=== PATIENT | male | born 1965 | race Two or more races ===

== ENCOUNTER 2020-02-12 09:56 | Outpatient (REF) | payer OTHER, SELFPAY | END 2020-02-12 09:57 | disposition home or self-care (01) | LOC: HO.LAB 09:56 | PROVIDERS: Visit Provider Internal Medicine | DX: Z20.828 Contact with and (suspected) exposure to other viral communicable diseases (principal) | CPT/HCPCS: 87635 ==

== ENCOUNTER 2020-08-10 09:03 | Inpatient (IN) | payer OTHER, SELFPAY ==
[2020-08-10] VITALS (8 sets, daily range): BP systolic 165–263; BP diastolic 90–170; PULSE 67–99; RESP 16–20; TEMP 36.2–37.1; O2SAT 95–98; BMI 33.4
--- NOTE | 2020-08-10 | ECG_ITS ---
Test Reason : CP Blood Pressure : / mmHG Vent. Rate : 094 BPM Atrial Rate : 094 BPM P-R Int : 160 ms QRS Dur : 086 ms QT Int : 354 ms P-R-T Axes : 065 000 225 degrees QTc Int : 442 ms Normal sinus rhythm Voltage criteria for left ventricular hypertrophy T wave abnormality, consider inferolateral ischemia Abnormal ECG No previous ECGs available Referred By: Valentina Lombardi Electronically Signed By:DONNA BROWNE MD
--- NOTE | ~2020-08-10 | XR_ITS ---
EXAMINATION: XR CHEST CLINICAL INFORMATION: Chest pain COMPARISON: None TECHNIQUE: Portable upright AP view of the chest was obtained. FINDINGS: There is no pneumothorax or pleural reaction. No airspace consolidation or definite groundglass opacity. The costophrenic sulci are clear. The heart is normal in size. The hilar and mediastinal contours and visualized bony structures are unremarkable. XR/XR chest 1V IMPRESSION: Unremarkable examination.
--- NOTE | ~2020-08-10 | CT_ITS ---
EXAMINATION: CT HEAD WITHOUT CONTRAST CLINICAL INFORMATION: Hypertension. Headache. COMPARISON: None TECHNIQUE: Contiguous axial imaging was performed from the skull base to vertex without intravenous administration of contrast. This CT examination was performed using dose optimization techniques as appropriate, variously including the following: *Automated exposure control *Adjustment of mA and/or kV according to patient size (this includes techniques or standardized protocols for targeted exams where dose is matched to indication/reason for exam; i.e. extremities or head) *Use of iterative reconstruction technique DLP: 869 mGy-cm FINDINGS: There is no evidence of acute intracranial hemorrhage or territorial infarction. No abnormal mass effect or midline shift is seen. [place] to white matter differentiation is well preserved. No extra-axial fluid collections are identified. The ventricles are normal in size. There is no abnormal attenuation within the brain parenchyma. The osseous structures and soft tissues are normal. The mastoid air cells and visualized portions of the paranasal sinuses are well aerated. CT/CT head/brain wo con IMPRESSION: Unremarkable exam.
--- NOTE | ~2020-08-10 | CT_ITS ---
EXAMINATION: CT ANGIOGRAM CHEST CLINICAL INFORMATION: Chest pain and hypertension. Rule out dissection. COMPARISON: None TECHNIQUE: Multiple axial images were obtained through the chest after the administration of 70 mL of Omnipaque 350 intravenous contrast. Extensive vascular post-processing including two-dimensional and three-dimensional reformatted images were created and reviewed on an independent workstation. This CT examination was performed using dose optimization techniques as appropriate, variously including the following: *Automated exposure control *Adjustment of mA and/or kV according to patient size (this includes techniques or standardized protocols for targeted exams where dose is matched to indication/reason for exam; i.e. extremities or head) *Use of iterative reconstruction technique DLP: 364 mGy-cm FINDINGS: The thoracic aorta is normal in caliber. No aneurysm or dissection is seen. The great vessels are normal. The heart is slightly enlarged. There is no pericardial effusion. There are no enlarged hilar or mediastinal lymph nodes. Evaluation of the lungs is limited due to respiratory motion artifact. There is a 3 mm calcified left upper lobe nodule axial image 102 series 6. The lungs are otherwise clear. There is no pleural effusion or pleural thickening. There is no pneumothorax. No chest wall mass is seen. There are small bilateral axillary lymph nodes. No enlarged axillary lymph nodes are seen. Images through the upper abdomen are unremarkable. There are degenerative changes of the spine. CT/CT angio chest IMPRESSION: Normal caliber thoracic aorta. No evidence of aneurysm or dissection. Slightly enlarged heart. Small calcified left upper lobe nodule probably representing a calcified granuloma.
[2020-08-10] MEDS: Labetalol HCL 100 MG/20 ML VIAL 10 MG IVPUSH (09:43)
[2020-08-10 09:45] LABS: MANUAL DIFF FLAG NO
[2020-08-10 09:46] LABS: Basophils Percent Auto 0.4 % (0-2); Eosinophils Absolute Auto 0.2 X10*3/uL (0.0-0.4); Eosinophils Percent Auto 3.1 % (0-4); Hematocrit 44.8 % (42-52); Hemoglobin 15.4 g/dl (14.0-18.0); Imm Gran Abs Auto 0.01 X10*3/uL (0.00-0.03); Imm Gran Pct Auto 0.1 % (0.0-0.4); Lymphocytes Absolute Auto 2.5 X10*3/uL (1.2-4.9); Lymphocytes Percent Auto 34.6 % (20-40); Mean Corpuscular HGB Conc 34.4 g/dl (31.0-36.0); Mean Corpuscular Hemoglobin 30.3 pg (27.0-33.0); Mean Corpuscular Volume 88.2 fL (80-98); Mean Platelet Volume 11.4 fL (9.4-12.4); Monocytes Absolute Auto 0.7 X10*3/uL (0.1-1.2); Monocytes Percent Auto 9.2 % (2-11); Neutrophils Absolute Auto 3.7 X10*3/uL (2.0-8.3); Neutrophils Percent Auto 52.6 % (45-73); Platelet Count 218 X10*3/uL (160-400); Red Blood Count 5.08 X10*6/uL (4.60-5.80); Red Cell Distribution Width 12.8 % (11.0-16.0); White Blood Count 7.1 X10*3/uL (4.8-10.8)
[2020-08-10 09:52] LABS: Prothrombin Time 11.6 SEC (10.8-13.0)
--- NOTE | 2020-08-10 09:53 | ED.CHESTPAIN ---
HPI - Chest Pain General Chief Complaint: Chest Pain Stated Complaint: chest pressure Time Seen by Provider: 08/10/20 09:27 Source: patient Mode of arrival: ambulatory History of Present Illness HPI narrative: 54-year-old male with past medical history of HTN noncompliant on medications presenting to the ED complaining of elevated BP at home x1 week, CP/palpitations since this morning, and posterior headache x1 week. Reports has been noncompliant with BP medications x 13 years. Denies lightheadedness/dizziness, SOB, nausea/vomiting, abdominal pain, numbness, tingling, weakness, vision changes, fever, chills. Does not take anticoagulation MD complaint: chest pain and chest heaviness Related Data Allergies Allergy/AdvReac Type Severity Reaction Status Date / Time No Known Allergies Allergy Unverified 08/10/20 09:27 Review of Systems Review of Systems: Constitutional: No Fever, No Chills ENT/Mouth: No Ear Pain,No sore throat, No Rhinorrhea Eyes: No Eye Pain, No Vision Changes Cardiovascular: + Chest Pain, No SOB, No Orthopnea, No Edema, + Palpitations Respiratory: No Cough, No Dyspnea Gastrointestinal: No Nausea, No Vomiting, No Diarrhea, No Abdominal pain Musculoskeletal: No joint pain, No Myalgias, No Joint Swelling Skin: No Skin Lesions, No rash Neuro: No Weakness, No Numbness, No Paresthesias, No Dizziness, + Headache Yes all other systems are reviewed and are negative Neurologic: Denies Abnormal speech present and Denies Sensory deficit (Neuro) [facility] Past Medical History Attestation statement: The following information was validated with the patient. Social History Social History Advance Directives: No Advance Directives Information Provided: No Physical Exam Vital Signs: Vital Signs: Last Vital Signs Pulse 99 08/10/20 09:43 Resp 18 08/10/20 09:17 BP 224/145 H 08/10/20 09:43 Pulse Ox 98 08/10/20 09:17 Body Mass Index 33.4 Const: General: cooperative, healthy appearing, comfortable and no acute distress Orientation/consciousness: patient oriented x3 Limitations: no limitations HENMT: Head: Yes normal to inspection Ears: hearing grossly normal bilaterally General nose exam: Normal external nose present Face and sinus: Yes normal facial exam Eyes: General: appearance normal, both eyes and all related structures EOM: EOMs intact bilaterally Neck: Neck: Yes normal visual inspection and Yes no meningeal signs Resp: Effort & Inspection: normal respiratory effort Auscultation: clear to auscultation bilaterally, no rales, no rhonchi and no wheezes Cardio: Rate: regular rate Heart sounds: S1 normal heart sound present and S2 normal heart sound present GI: Inspection: Yes normal to inspection Palpation (GI): Soft to palpation, nontender, no guarding and not rigid Skin: Rashes: no rashes Wounds: no wounds Neuro: General: patient oriented x3, gait normal, tone normal, moves all extremities, no meningeal signs, no focal motor deficits and CN's II-XI intact bilaterally Cognition (Neuro): normal cognition Speech: No Abnormal speech present Gait exam (Neuro): Normal gait present Motor exam (neuro): 5/5 motor strength present throughout, Pronator motor function not present and no tremor noted Sensory Exam: No Sensory deficit (Neuro) Coordination: [id number] test normal Extrem: General: Yes normal to inspection and Yes no pedal edema Course Course Course Narrative: -1010-- repeat blood pressure 181/117 about 25 minutes after 10mg IV Labetalol (which is target 30% decrease) XR chest 1V IMPRESSION: Unremarkable examination. CT head/brain wo con IMPRESSION: Unremarkable exam. -initial troponin 29 > will obtain 3 hour repeat. Plan to admit for further management MDM - Chest Pain MDM Narrative Medical decision making narrative: 54-year-old male with past medical history of HTN noncompliant on medications presenting to the ED complaining of elevated BP at home x1 week, CP/palpitations since this morning, and posterior headache x1 week. On exam hypertensive 263/170, NAD, no focal neuro deficits. Concern for hypertensive emergency/urgency vs ACS vs IC pathology. Unlikely CVA/ICH Plan: EKG, labs, CXR, head CT, IV Labetalol, anticipated admission Medical Records Data Attestation: I reviewed the patient's medical records. Lab Data Attestation: I reviewed the patient's lab results. Result diagrams: 08/10/20 09:39 08/10/20 09:39 Labs: Lab Results 08/10/20 08/10/20 08/10/20 Range/Units 09:39 09:39 09:39 WBC 7.1 (4.8-10.8) X10*3/uL RBC 5.08 (4.60-5.80) X10*6/uL Hgb 15.4 (14.0-18.0) g/dl Hct 44.8 (42-52) % MCV 88.2 (80-98) fL MCH 30.3 (27.0-33.0) pg MCHC 34.4 (31.0-36.0) g/dl RDW 12.8 (11.0-16.0) % Plt Count 218 (160-400) X10*3/uL MPV 11.4 (9.4-12.4) fL Immature Gran % (Auto) 0.1 (0.0-0.4) % Neut % (Auto) 52.6 (45-73) % Lymph % (Auto) 34.6 (20-40) % [place] % (Auto) 9.2 (2-11) % Eos % (Auto) 3.1 (0-4) % Baso % (Auto) 0.4 (0-2) % Lymph # (Auto) 2.5 (1.2-4.9) X10*3/uL [place] # (Auto) 0.7 (0.1-1.2) X10*3/uL Eos # (Auto) 0.2 (0.0-0.4) X10*3/uL Baso # (Auto) 0.0 (0.0-0.2) X10*3/uL Abs Immat Gran (auto) 0.01 (0.00-0.03) X10*3/uL Absolute Neuts (auto) 3.7 (2.0-8.3) X10*3/uL Absolute Nucleated RBC 0.000 (0.0-0.012) X10*3/uL Nucleated RBC % (auto) 0.0 (0.0-0.2) /100WBC PT 11.6 (10.8-13.0) SEC INR 1.0 (0.9-1.1) APTT 38.6 H (24.1-38.0) SEC Sodium 142 (135-145) mmol/L Potassium 4.1 (3.3-5.1) mmol/L Chloride 105 (96-108) mmol/L Carbon Dioxide 28 (22-29) mmol/L Anion Gap 13 (12-20) BUN 13 (9-16) mg/dL Creatinine 1.08 (0.5-1.4) mg/dL Estim Creat Clear Calc 102.1 Estimated GFR > 60 Random Glucose 113 (60-115) mg/dL Calcium 9.6 (8.4-10.2) mg/dL Magnesium 2.1 (1.6-2.6) mg/dL Total Bilirubin 0.5 (0.0-1.0) mg/dL Direct Bilirubin 0.2 (0.0-0.5) mg/dL AST 25 (5-37) U/L ALT 49 H (0-40) U/L Alkaline Phosphatase 77 (39-117) U/L Troponin I High Sens (<3.5-35.0) ng/L B-Natriuretic Peptide (<100) pg/mL Total Protein 7.7 (6.5-8.0) g/dL Albumin 5.0 (3.5-5.0) g/dL TSH 2.09 (0.32-4.0) uIU/mL 08/10/20 Range/Units 09:39 WBC (4.8-10.8) X10*3/uL RBC (4.60-5.80) X10*6/uL Hgb (14.0-18.0) g/dl Hct (42-52) % MCV (80-98) fL MCH (27.0-33.0) pg MCHC (31.0-36.0) g/dl RDW (11.0-16.0) % Plt Count (160-400) X10*3/uL MPV (9.4-12.4) fL Immature Gran % (Auto) (0.0-0.4) % Neut % (Auto) (45-73) % Lymph % (Auto) (20-40) % [place] % (Auto) (2-11) % Eos % (Auto) (0-4) % Baso % (Auto) (0-2) % Lymph # (Auto) (1.2-4.9) X10*3/uL [place] # (Auto) (0.1-1.2) X10*3/uL Eos # (Auto) (0.0-0.4) X10*3/uL Baso # (Auto) (0.0-0.2) X10*3/uL Abs Immat Gran (auto) (0.00-0.03) X10*3/uL Absolute Neuts (auto) (2.0-8.3) X10*3/uL Absolute Nucleated RBC (0.0-0.012) X10*3/uL Nucleated RBC % (auto) (0.0-0.2) /100WBC PT (10.8-13.0) SEC INR (0.9-1.1) APTT (24.1-38.0) SEC Sodium (135-145) mmol/L Potassium (3.3-5.1) mmol/L Chloride (96-108) mmol/L Carbon Dioxide (22-29) mmol/L Anion Gap (12-20) BUN (9-16) mg/dL Creatinine (0.5-1.4) mg/dL Estim Creat Clear Calc Estimated GFR Random Glucose (60-115) mg/dL Calcium (8.4-10.2) mg/dL Magnesium (1.6-2.6) mg/dL Total Bilirubin (0.0-1.0) mg/dL Direct Bilirubin (0.0-0.5) mg/dL AST (5-37) U/L ALT (0-40) U/L Alkaline Phosphatase (39-117) U/L Troponin I High Sens 29.0 (<3.5-35.0) ng/L B-Natriuretic Peptide 50 (<100) pg/mL Total Protein (6.5-8.0) g/dL Albumin (3.5-5.0) g/dL TSH (0.32-4.0) uIU/mL ECG Data ECG #1: Attestation: I personally reviewed and interpreted this ECG as follows: ECG interpretation date: 08/10/20 ECG interpretation time: 09:21 Interpretation: EKG normal sinus rhythm with a rate of 94. T-wave inversions in leads 2, AVF, V5 and V6 Discharge Plan Discharge Clinical Impression: Hypertensive urgency Patient Disposition: Admitted As Inpatient
[2020-08-10 10:02] LABS: Partial Thromboplastin Time 38.6 SEC (24.1-38.0)
[2020-08-10 10:07] LABS: Alanine Aminotransferase 49 U/L (0-40); Alkaline Phosphatase 77 U/L (39-117); Anion Gap 13 (12-20); Aspartate Amino Transferase 25 U/L (5-37); Bilirubin Direct 0.2 mg/dL (0.0-0.5); Bilirubin Total 0.5 mg/dL (0.0-1.0); Blood Urea Nitrogen 13 mg/dL (9-16); Calcium 9.6 mg/dL (8.4-10.2); Carbon Dioxide 28 mmol/L (22-29); Chloride 105 mmol/L (96-108); Creatinine Clr Calc Pharmacy 102.1; Estimated Glomerular Filt Rate > 60; Glucose Random 113 mg/dL (60-115); Magnesium 2.1 mg/dL (1.6-2.6); Potassium 4.1 mmol/L (3.3-5.1); Sodium 142 mmol/L (135-145); Total Protein 7.7 g/dL (6.5-8.0)
[2020-08-10 10:15] LABS: B Type Natriuretic Peptide 50 pg/mL (<100)
[2020-08-10 10:40] LABS: TSH reflex Free T4 2.09 uIU/mL (0.32-4.0)
--- NOTE | 2020-08-10 12:19 | P.HPHOSP_ITS ---
History of Present Illness Date of Service: 08/10/20 Chief Complaint: Chest pressure Mr Jorge is a 54-year-old male with past medical history of hypertension who has not seen a doctor in over 13 years and consequently has been off of medication. Prior medical care was in [place], but since moving to [facility], he has not establish medical care. He was in his usual state of health until 8:00 this morning, when he experienced sudden-onset moderate- intensity mid-sternal chest pressure radiating to his head. No associated diaphoresis or dyspnea. He had not experienced exertional or rest chest pressure or pain prior to this. No abdominal pain. He arrived in the ED with blood pressure of 263/170. He was given 10mg of IV labetalol and blood pressure decreased to 176/106. When I saw him, his chest pressure and headache had completely resolved. Review of Systems Review of Systems: Yes all other systems are reviewed and are negative PMFSH Pertinent family history: Father of [place] at age of 76 years. Mother is alive and has DM2 and HTN. 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 Meds Allergies Allergy/AdvReac Type Severity Reaction Status Date / Time No Known Allergies Allergy Unverified 08/10/20 09:27 Active Medications: Current Medications Generic Name Dose Route Start Last Admin Trade Name Freq PRN Reason Stop Dose Admin Acetaminophen 650 mg 08/10/20 12:12 Acetaminophen 325 Mg Tablet PO Q6H PRN Pain, Mild (Pain Scale 1-3) Enoxaparin Sodium 40 mg 08/10/20 13:00 Enoxaparin Sodium 40 Mg/0.4 Ml Syringe SUBCUT Q24H [facility] Lisinopril 10 mg 08/10/20 13:00 Lisinopril 10 Mg Tablet PO DAILY [facility] Protocol Nicotine 14 mg 08/10/20 12:30 Nicotine 14 Mg Patch.[id number] TRANSDERMA DAILY [facility] Ondansetron HCl 4 mg 08/10/20 12:12 Ondansetron Hcl 4 Mg/2 Ml Vial IVPUSH Q8H PRN Nausea and Vomiting Pharmacy Consult 1 each 08/10/20 09:27 Consult Rx Perform Med Rec MISCELLANE ONCE PRN Consult order Sodium Chloride 3 ml 04/27/21 16:00 0.9 % Sodium Chloride Flush 3 Ml Syringe IVFLUSH QSHIFT [facility] Home Medications Medication Instructions Recorded Confirmed Last Taken Type No Known Home Meds 08/10/20 08/10/20 Unknown History Physical Exam Vital Signs and Narrative: Vital Signs: Last Vital Signs Pulse 67 08/10/20 12:00 Resp 18 08/10/20 12:00 BP 176/106 H 08/10/20 12:00 Pulse Ox 95 08/10/20 12:00 Body Mass Index 33.4 Gen: in no acute distress HEENT: sclera anicteric, moist mucus membranes Neck: supple Lungs: clear to auscultation bilaterally Heart: regular rate and rhythm, no murmurs, no JVD Abd: soft, obese, non-tender, non-distended Ext: no edema Skin: warm/well-perfused Neuro: alert and oriented x3, no focal findings Psych: appropriate affect Results Labs CBC and Chem 7: 08/10/20 09:39 08/10/20 09:39 Labs: Laboratory Results - last 24 hr 08/10/20 08/10/20 08/10/20 09:39 09:39 09:39 MCV 88.2 MCH 30.3 MCHC 34.4 RDW 12.8 Plt Count 218 MPV 11.4 Immature Gran % (Auto) 0.1 Neut % (Auto) 52.6 Lymph % (Auto) 34.6 [place] % (Auto) 9.2 Eos % (Auto) 3.1 Baso % (Auto) 0.4 Lymph # (Auto) 2.5 [place] # (Auto) 0.7 Eos # (Auto) 0.2 Baso # (Auto) 0.0 Abs Immat Gran (auto) 0.01 Absolute Neuts (auto) 3.7 Absolute Nucleated RBC 0.000 Nucleated RBC % (auto) 0.0 PT 11.6 INR 1.0 APTT 38.6 H Anion Gap 13 Estim Creat Clear Calc 102.1 Estimated GFR > 60 Random Glucose 113 Calcium 9.6 Magnesium 2.1 Total Bilirubin 0.5 Direct Bilirubin 0.2 AST 25 ALT 49 H Alkaline Phosphatase 77 Troponin I High Sens B-Natriuretic Peptide Total Protein 7.7 Albumin 5.0 TSH 2.09 08/10/20 09:39 MCV MCH MCHC RDW Plt Count MPV Immature Gran % (Auto) Neut % (Auto) Lymph % (Auto) [place] % (Auto) Eos % (Auto) Baso % (Auto) Lymph # (Auto) [place] # (Auto) Eos # (Auto) Baso # (Auto) Abs Immat Gran (auto) Absolute Neuts (auto) Absolute Nucleated RBC Nucleated RBC % (auto) PT INR APTT Anion Gap Estim Creat Clear Calc Estimated GFR Random Glucose Calcium Magnesium Total Bilirubin Direct Bilirubin AST ALT Alkaline Phosphatase Troponin I High Sens 29.0 B-Natriuretic Peptide 50 Total Protein Albumin TSH Imaging Radiologist's Impressions: Impressions Chest X-Ray 08/10/20 09:28 IMPRESSION: Unremarkable examination. Head CT 08/10/20 09:30 IMPRESSION: Unremarkable exam. EKG: NSR, LVH with lateral TWIs Assessment and Plan (1) Hypertensive emergency: Status: Acute (2) Troponin level elevated: Status: Acute This is a 54 year-old man with previously diagnosed hypertension but without medical care for the past 13 years presenting with acute chest pain in a hypertensive emergency. # HTN emergency - He responded appropriately to 10mg of IV labetalol. Will admit to [facility]. Will initiate lisinopril 10 mg daily with goal of gradual lowering of blood pressure. # chest pain - Troponin elevation likely related to HTN emergency; will re-check 3-hour level. Will rule out aortic dissection with CT angio of chest. Will check echocardiogram. # ALT elevation - Suspect due to NAFLD. Will screen for dyslipidemia and DM as well as HBV/HCV. # tobacco abuse - Cessation was counseled. NRT will be initiated. # VTE prophyaxis - LMWH # code - Full code.
[2020-08-10] MEDS: Nicotine 14 MG PATCH.TD24 TRANSDERMA (13:16)
[2020-08-10] MEDS: Enoxaparin Sodium 40 MG/0.4 ML SYRINGE SUBCUT (13:16)
[2020-08-10] MEDS: lisinopriL 10 MG TABLET PO (13:16)
[2020-08-10] MEDS: iohexoL 350 MG/ML 100 ML INFUS..BTL IV (13:41)
--- NOTE | 2020-08-10 14:00 | CA_ITS ---
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 Normal LV systolic function with moderate LVH with pseudonormal filling pattern 2. Moderately dilated left atrium 3. Mild mitral regurgitation 4. Normal RV systolic pressure 5. No pericardial effusion Findings Left Ventricle Normal left ventricular size and systolic function. There is moderately increased left ventricular wall thickness. The visually estimated ejection fraction is between 55-60%. Spectral Doppler is indicative of a pseudonormal filling pattern. E/E prime ratio is between 8 and 15 consistent with indeterminate filling pressures. Right Ventricle Normal right ventricular cavity size and systolic function. Atria The left atrium is moderately dilated. There is no evidence of interatrial shunt. The right atrium is likely dilated. Aortic Valve The aortic valve structure and function is likely normal. There is no aortic valve stenosis. There is no aortic valve regurgitation. Mitral Valve Normal mitral valve structure and function. There is mild mitral valve regurgitation. There is no mitral valve stenosis. Pulmonic Valve The pulmonic valve is likely normal. Tricuspid Valve Normal tricuspid valve structure. There is trace tricuspid valve regurgitation. The right ventricular systolic pressure is normal. The right ventricular systolic pressure is 20 mmHg. Normal right atrial pressure. There is no evidence of pulmonary hypertension. Great Vessels All visible segments of the aorta are normal in size. The pulmonary artery was not well visualized. Venous The inferior vena cava is normal in size and collapses greater than 50% with inspiration. Pericardium/Pleural There is no evidence of pericardial effusion. Prior Study Comparison No prior study available for comparison. Measurements 2D Linear Measurements IVSd: 1.50 0.6-0.9/0.6-1.0 cm LVIDd: 5.02 3.9-5.3/4.2-5.9 cm LVIDs: 3.39 2.0-3.6 cm LVPWd: 1.51 0.7-1.1 cm Ao Root: 3.60 2.1-3.5 cm LA Diam: 4.50 2.7-3.8/3.0-4.0 cm LV Mass: 406.93 67-162/88-224 g LVOT Diam: 2.30 3.0+(-)1.3 cm 2D Systolic Function EF 4C: 52.70 >55% EF 2C: 60.20 >55% EF BiP: 56.60 >55% Mitral Valve MV Pk E: 0.82 MV PK A: 0.50 MV Decel Time: 158.00 E/A: 1.60 E'Lateral: 7.74 E'Medial: 6.67 E/E' Med: 12.20 E/E' Lat: 10.50 PHT: 46.00 MVA PHT: 4.78 Decel [place]: 5.14 Aortic Valve AoV Pk Rikki: 1.17 AoV Mn Rikki: 0.71 AoV VTI: 0.23 AoV Pk Grad: 5.00 Aov Mn Grad: 2.00 PEPPER Cont.VTI: 3.46 LVOT LVOT Pk Rikki: 0.91 LVOT Mn Rikki: 0.62 LVOT VTI: 0.19 LVOT Pk Grad: 3.00 LVOT Mn Grad: 2.00 LVOT Diam: 2.30 LVOT Area: 4.15 Diastolic Function MV Pk E: 0.82 MV Pk A: 0.50 E/A: 1.60 E'Medial: 6.67 E/E' Med: 12.20 E' Laterial: 7.74 E/E' Lat: 10.50 Tricuspid Valve TR Pk Rikki: 2.05 TR Pk Grad: 17.00 RA Press: 3.00 RVSP: 20.00 Great Vessels Aorta Ao Root-2D: 3.60 2.0-3.7 cm Ao Asc: 3.60 2.1-3.4 cm Pulmonary Valve PV Pk Rikki: 0.83 Peak PV Grad: 3.00 Updated in Other Vendor System with Status of Final Flaco Real MD electronically signed on 08/10/2020 4:04:28 PM with status of Final
[2020-08-10 16:22] LABS: Estimated Average Glucose 114 mg/dL; Hemoglobin A1c % 5.6 %; Troponin-I High Sensitivity 27.9 ng/L (<3.5-35.0)
--- NOTE | 2020-08-10 19:09 | PC.NURSE ---
Report taken from Chriss plan for admission due to HTN.
--- NOTE | 2020-08-10 19:34 | PC.NURSE ---
Pt resting in bed with at bedside. Pt reporting a very small frontal headache. VSS. Covid swab obtained. Continue to monitor.
[2020-08-10 19:55] LABS: COVID-19 Test Negative (Negative); IDNOW Serial# 9DD0AD1C
--- NOTE | 2020-08-10 19:55 | PC.NURSE ---
This RN calling [facility] to give report, [facility] to call back when able.
--- NOTE | 2020-08-10 20:25 | PC.NURSE ---
Report given to Vern.
[2020-08-10] MEDS: 0.9 % Sodium Chloride Flush 3 ML SYRINGE IVFLUSH (21:54)
[2020-08-11 00:31] VITALS: BP 195/115; PULSE 66
[2020-08-11] MEDS: lisinopriL 5 MG TABLET PO (00:31)
[2020-08-11 01:45] VITALS: BP 157/99
[2020-08-11 03:20] VITALS: BP 145/74; PULSE 70; RESP 12; TEMP 36.6; O2SAT 97
[2020-08-11 06:44] LABS: Anion Gap 17 (12-20); Blood Urea Nitrogen 16 mg/dL (9-16); Calcium 9.7 mg/dL (8.4-10.2); Carbon Dioxide 28 mmol/L (22-29); Chloride 104 mmol/L (96-108); Cholesterol 229 mg/dL; Estimated Glomerular Filt Rate > 60; Glucose Random 112 mg/dL (60-115); HDL Cholesterol 29 mg/dL; Potassium 4.9 mmol/L (3.3-5.1); Sodium 144 mmol/L (135-145); Triglycerides 478 mg/dL
[2020-08-11 07:46] VITALS: BP 168/96; PULSE 64; RESP 18; TEMP 36.6; O2SAT 96
[2020-08-11 08:19] LABS: Hepatitis B Core Antibody Nonreactive (Nonreactive); ~Hepatitis B Surface Antibody NONREACTIVE (Nonreactive)
[2020-08-11 08:38] LABS: HBsAGNum1 0.19 S/CO (0.00-0.99); Hepatitis B Surface Antigen Negative (Negative); ~HepC Num1 0.09 S/CO (0.00-0.79); ~Hepatitis C Antibody Nonreactive (Nonreactive)
--- NOTE | 2020-08-11 09:42 | MHC.CM.PN ---
with computer network specialist met with pt who independent pt does not antixcapate needing servceis when dcd dc plan home no servceis hcp filed and placed on chart
[2020-08-11 10:13] VITALS: BP 168/96; PULSE 64
[2020-08-11] MEDS: lisinopriL 10 MG TABLET PO (10:13)
[2020-08-11] MEDS: Nicotine 14 MG PATCH.TD24 TRANSDERMA (10:13)
[2020-08-11] MEDS: 0.9 % Sodium Chloride Flush 3 ML SYRINGE IVFLUSH (10:14)
--- NOTE | 2020-08-11 10:14 | MHC.CM.PN ---
pt dcd home no skilled services ordered by
--- NOTE | 2020-08-11 10:15 | PM.DS ---
DS: Providers Provider Date of Service: 08/11/20 Date of admission: 08/10/20 12:14 Primary care physician: None Physician DS: Diagnosis Discharge Diagnosis (1) Hypertensive emergency: Status: Acute (2) Troponin level elevated: Status: Acute (3) Dyslipidemia: Status: Acute (4) Tobacco abuse: Status: Acute (5) Elevated ALT measurement: Status: Acute DS: Medications Discharge Medications Home Medications: Previous Rx's Medication Instructions Recorded atorvastatin 40 mg PO BEDTIME #30 tab 08/11/20 lisinopril 20 mg PO DAILY #30 tab 08/11/20 nicotine 14 mg TRANSDERMAL DAILY #30 ea 08/11/20 DS: Summary Hospital Course Hospital Course: From my admission history and physical, 08/10/2020: Mr Jorge is a 54-year-old male with past medical history of hypertension who has not seen a doctor in over 13 years and consequently has been off of medication. Prior medical care was in [place], but since moving to [place], he has not establish medical care. He was in his usual state of health until 8:00 this morning, when he experienced sudden-onset moderate-intensity mid-sternal chest pressure radiating to his head. No associated diaphoresis or dyspnea. He had not experienced exertional or rest chest pressure or pain prior to this. No abdominal pain. He arrived in the ED with blood pressure of 263/170. He was given 10mg of IV labetalol and blood pressure decreased to 176/106. When I saw him, his chest pressure and headache had completely resolved. Repeat 3-hour troponin had decreased and the patient did not have recurrent pain. Echocardiogram did not demonstrate any wall motion abnormalities; there was evidence of LVH certainly due to longstanding hypertension. Blood pressure decrease appropriately with initiation of lisionpril 10 mg daily, increased to 20 mg daily upon discharge. Screening for diabetes/prediabetes was negative. He has marked dyslipidemia and was started on atorvastatin. He probably has NAFLD given slightly elevated ALT along with obesity. The importance of lifestyle change with exercise and diet was counseled; he was also advised to quit smoking was prescribed nicotine replacement to help with this. He was instructed to establish primary care as soon as possible and to recheck a nonfasting comprehensive metabolic panel in 1 week. Non urgent outpatient cardiac stress testing should be considered once he has established primary care. Time Spent with Patient Time attestation: Total time spent providing and/or coordinating discharge services: 35 Discharge coordination time: Greater than 30 minutes Physical Exam Vital Signs: Vital Signs: Last Vital Signs Temp 97.9 F 08/11/20 07:46 Pulse 64 08/11/20 10:13 Resp 18 08/11/20 07:46 BP 168/96 H 08/11/20 10:13 Pulse Ox 96 08/11/20 07:46 Body Mass Index 33.4 Gen: in no acute distress HEENT: sclera anicteric, moist mucus membranes Neck: supple Lungs: clear to auscultation bilaterally Heart: regular rate and rhythm, no murmurs Abd: soft, non-tender, non-distended Ext: no edema Skin: warm/well-perfused Neuro: alert and oriented x3, no focal findings Psych: appropriate affect DS: Data Data Completed and Pending Labs on day of discharge: Laboratory Results WBC 7.1 X10*3/uL (4.8-10.8) 08/10/20 09:39 RBC 5.08 X10*6/uL (4.60-5.80) 08/10/20 09:39 Hgb 15.4 g/dl (14.0-18.0) 08/10/20 09:39 Hct 44.8 % (42-52) 08/10/20 09:39 MCV 88.2 fL (80-98) 08/10/20 09:39 MCH 30.3 pg (27.0-33.0) 08/10/20 09:39 MCHC 34.4 g/dl (31.0-36.0) 08/10/20 09:39 RDW 12.8 % (11.0-16.0) 08/10/20 09:39 Plt Count 218 X10*3/uL (160-400) 08/10/20 09:39 MPV 11.4 fL (9.4-12.4) 08/10/20 09:39 Immature Gran % (Auto) 0.1 % (0.0-0.4) 08/10/20 09:39 Neut % (Auto) 52.6 % (45-73) 08/10/20 09:39 Lymph % (Auto) 34.6 % (20-40) 08/10/20 09:39 [place] % (Auto) 9.2 % (2-11) 08/10/20 09:39 Eos % (Auto) 3.1 % (0-4) 08/10/20 09:39 Baso % (Auto) 0.4 % (0-2) 08/10/20 09:39 Lymph # (Auto) 2.5 X10*3/uL (1.2-4.9) 08/10/20 09:39 [place] # (Auto) 0.7 X10*3/uL (0.1-1.2) 08/10/20 09:39 Eos # (Auto) 0.2 X10*3/uL (0.0-0.4) 08/10/20 09:39 Baso # (Auto) 0.0 X10*3/uL (0.0-0.2) 08/10/20 09:39 Abs Immat Gran (auto) 0.01 X10*3/uL (0.00-0.03) 08/10/20 09:39 Absolute Neuts (auto) 3.7 X10*3/uL (2.0-8.3) 08/10/20 09:39 Absolute Nucleated RBC 0.000 X10*3/uL (0.0-0.012) 08/10/20 09:39 Nucleated RBC % (auto) 0.0 /100WBC (0.0-0.2) 08/10/20 09:39 PT 11.6 SEC (10.8-13.0) 08/10/20 09:39 INR 1.0 (0.9-1.1) 08/10/20 09:39 APTT 38.6 SEC (24.1-38.0) H 08/10/20 09:39 Sodium 144 mmol/L (135-145) 08/11/20 05:19 Potassium 4.9 mmol/L (3.3-5.1) 08/11/20 05:19 Chloride 104 mmol/L (96-108) 08/11/20 05:19 Carbon Dioxide 28 mmol/L (22-29) 08/11/20 05:19 Anion Gap 17 (12-20) 08/11/20 05:19 BUN 16 mg/dL (9-16) 08/11/20 05:19 Creatinine 1.16 mg/dL (0.5-1.4) 08/11/20 05:19 Estim Creat Clear Calc 95.0 08/11/20 05:19 Estimated GFR > 60 08/11/20 05:19 Random Glucose 112 mg/dL (60-115) 08/11/20 05:19 Estimat Average Glucose 114 mg/dL 08/10/20 15:32 Hemoglobin A1c % 5.6 % 08/10/20 15:32 Calcium 9.7 mg/dL (8.4-10.2) 08/11/20 05:19 Magnesium 2.1 mg/dL (1.6-2.6) 08/10/20 09:39 Total Bilirubin 0.5 mg/dL (0.0-1.0) 08/10/20 09:39 Direct Bilirubin 0.2 mg/dL (0.0-0.5) 08/10/20 09:39 AST 25 U/L (5-37) 08/10/20 09:39 ALT 49 U/L (0-40) H 08/10/20 09:39 Alkaline Phosphatase 77 U/L (39-117) 08/10/20 09:39 Troponin I High Sens 27.9 ng/L (<3.5-35.0) 08/10/20 15:32 B-Natriuretic Peptide 50 pg/mL (<100) 08/10/20 09:39 Total Protein 7.7 g/dL (6.5-8.0) 08/10/20 09:39 Albumin 5.0 g/dL (3.5-5.0) 08/10/20 09:39 Triglycerides 478 mg/dL 08/11/20 05:19 Cholesterol 229 mg/dL 08/11/20 05:19 LDL Cholesterol, Calc TNP 08/11/20 05:19 HDL Cholesterol 29 mg/dL 08/11/20 05:19 TSH 2.09 uIU/mL (0.32-4.0) 08/10/20 09:39 COVID-19 (CHANI) Negative (Negative) 08/10/20 19:33 COVID-19 Clin Com See Note 08/10/20 19:33 Hep Bs Antigen Negative (Negative) 08/11/20 05:19 Hep Bs Antibody NONREACTIVE (Nonreactive) 08/11/20 05:19 Hep B Core Total Ab Nonreactive (Nonreactive) 08/11/20 05:19 Hepatitis C Ab (EIA) Nonreactive (Nonreactive) 08/11/20 05:19 Impressions Chest X-Ray 08/10/20 09:28 IMPRESSION: Unremarkable examination. Head CT 08/10/20 09:30 IMPRESSION: Unremarkable exam. Chest CTA 08/10/20 13:24 IMPRESSION: Normal caliber thoracic aorta. No evidence of aneurysm or dissection. Slightly enlarged heart. Small calcified left upper lobe nodule probably representing a calcified granuloma. TTE 08/10/20 1. Normal LV systolic function with moderate LVH with pseudonormal filling pattern 2. Moderately dilated left atrium 3. Mild mitral regurgitation 4. Normal RV systolic pressure 5. No pericardial effusion Discharge Plan Discharge Anticipated Discharge Date/Time: 08/11/20 10:08 Patient Disposition: Home, Self-Care Discharge Diagnosis: hypertensive emergency, dyslipidemia, elevated ALT, tobacco abuse Referrals: Physician,None [Primary Care Provider] - 1 Week Lisa Casiano MD [Physician] - 1 Week Discharge Medications: New atorvastatin 40 mg Tablet 40 mg PO BEDTIME Qty: 30 RF: 0 nicotine 14 mg/24 hr Patch 24 Hour 14 mg transdermal DAILY Qty: 30 RF: 0 lisinopril 20 mg tablet 20 mg PO DAILY Qty: 30 RF: 0 Discharge Orders: Discharge Order (Routine); Ordered 08/11/20 Ordered By: Domingo Rangel Diet: low salt diet Activity on Discharge: As tolerated Stand Alone Forms: Patient Portal Discharge page Other Ambulatory Orders: Comprehensive Met. Panel (Routine) Timeframe: 1 Week Facility: [facility] - Location: Laboratory Ordered By: Domingo Rangel Care Plan Goals: prevention of cardiovascular disease smoking cessation Health Concerns: hypertension dyslipidemia elevated ALT tobacco abuse Plan of Treatment: Mediterranean low-salt diet aerobic exercise, 30 a day 5 days a week adequate sleep start lisinopril 20 mg daily start atorvastatin 40 mg daily start nicotine patch 14 mg daily and stop smoking check labs in 1 week [nonfasting]: comprehensive metabolic panel establish primary care as soon as possible; try [facility]: Adult [facility] [address], [address] [place] [address] Phone: P) [phone] Assessment: see above Patient Instructions: Low Fat Diet (DC), Non-Alcoholic Fatty Liver Disease (DC), Hypertension (DC), Mediterranean Diet (DC), Benefits of an Active Lifestyle (DC)
[2020-08-11 11:01] VITALS: BP 157/95; PULSE 65; RESP 18; TEMP 36.4; O2SAT 97
== END 2020-08-11 11:48 | disposition home or self-care (01) | DRG 305 ==
LOC: HO.ED 10:45 → HO.EDOVER 12:54 → HO.IMC 19:04
PROVIDERS: Physician Assistant; Admitting Provider Family Medicine; Emergency Provider Internal Medicine; PCP Internal Medicine; Visit Provider Family Medicine
DX: I16.1 Hypertensive emergency (principal); R79.89 Other specified abnormal findings of blood chemistry; K76.0 Fatty (change of) liver, not elsewhere classified; I10 Essential (primary) hypertension; E78.5 Hyperlipidemia, unspecified; Z20.822 Contact with and (suspected) exposure to COVID-19; F17.210 Nicotine dependence, cigarettes, uncomplicated; Z71.6 Tobacco abuse counseling; Z91.14 Patient's other noncompliance with medication regimen; Z91.19 Patient's noncompliance with other medical treatment and regimen; Z79.899 Other long term (current) drug therapy
CPT/HCPCS: 36415; 70450; 71045; 71275; 80048; 80061; 80076; 83036; 83735; 83880; 84443; 84484; 85025; 85610; 85730; 86704; 86706; 86803; 87340; 87635; 93005; 93306; 96374; 99285; J1650; Q9967

== ENCOUNTER 2020-08-18 09:20 | Outpatient (REF) | payer OTHER, SELFPAY ==
[2020-08-18 11:07] LABS: Alanine Aminotransferase 70 U/L (0-40); Albumin Level 5.1 g/dL (3.5-5.0); Alkaline Phosphatase 83 U/L (39-117); Anion Gap 13 (12-20); Aspartate Amino Transferase 32 U/L (5-37); Bilirubin Total 0.9 mg/dL (0.0-1.0); Blood Urea Nitrogen 18 mg/dL (9-16); Carbon Dioxide 29 mmol/L (22-29); Chloride 105 mmol/L (96-108); Estimated Glomerular Filt Rate > 60; Glucose Random 101 mg/dL (60-115); Potassium 4.9 mmol/L (3.3-5.1); Sodium 142 mmol/L (135-145); Total Protein 7.9 g/dL (6.5-8.0)
== END 2020-08-18 09:21 | disposition home or self-care (01) ==
LOC: HO.LAB 09:20
PROVIDERS: Visit Provider Family Medicine
DX: I16.1 Hypertensive emergency (principal); I10 Essential (primary) hypertension; R74.01 Elevation of levels of liver transaminase levels
CPT/HCPCS: 36415; 80053

== ENCOUNTER 2021-01-10 08:25 | Outpatient (REF) | payer OTHER, SELFPAY ==
[2021-01-10 09:13] LABS: MANUAL DIFF FLAG NO
[2021-01-10 09:20] LABS: Basophils Percent Auto 0.6 % (0-2); Eosinophils Absolute Auto 0.2 X10*3/uL (0.0-0.4); Eosinophils Percent Auto 3.5 % (0-4); Hematocrit 39.6 % (42-52); Hemoglobin 13.6 g/dl (14.0-18.0); Imm Gran Abs Auto 0.02 X10*3/uL (0.00-0.03); Imm Gran Pct Auto 0.3 % (0.0-0.4); Lymphocytes Absolute Auto 2.1 X10*3/uL (1.2-4.9); Lymphocytes Percent Auto 31.2 % (20-40); Mean Corpuscular HGB Conc 34.3 g/dl (31.0-36.0); Mean Corpuscular Hemoglobin 30.2 pg (27.0-33.0); Mean Platelet Volume 10.7 fL (9.4-12.4); Monocytes Absolute Auto 0.8 X10*3/uL (0.1-1.2); Neutrophils Absolute Auto 3.6 X10*3/uL (2.0-8.3); Neutrophils Percent Auto 53.4 % (45-73); Platelet Count 244 X10*3/uL (160-400); Red Cell Distribution Width 13.2 % (11.0-16.0); White Blood Count 6.8 X10*3/uL (4.8-10.8)
[2021-01-10 09:49] LABS: Alanine Aminotransferase 59 U/L (0-40); Albumin Level 4.6 g/dL (3.5-5.0); Alkaline Phosphatase 73 U/L (39-117); Anion Gap 13 (12-20); Aspartate Amino Transferase 31 U/L (5-37); Bilirubin Total 0.7 mg/dL (0.0-1.0); Blood Urea Nitrogen 15 mg/dL (9-16); Calcium 9.6 mg/dL (8.4-10.2); Carbon Dioxide 23 mmol/L (22-29); Chloride 109 mmol/L (96-108); Cholesterol 137 mg/dL; Estimated Glomerular Filt Rate > 60; Glucose Fasting 111 mg/dL (60-99); HDL Cholesterol 32 mg/dL; LDL Cholesterol Calculated 65 mg/dl; Potassium 4.2 mmol/L (3.3-5.1); Sodium 141 mmol/L (135-145); Total Protein 7.3 g/dL (6.5-8.0); Triglycerides 204 mg/dL
[2021-01-10 10:10] LABS: Thyroid Stimulating Hormone 3.27 uIU/mL (0.32-4.0)
== END 2021-01-10 08:26 | disposition home or self-care (01) ==
LOC: HO.LAB 08:25
PROVIDERS: PCP Internal Medicine; Visit Provider Internal Medicine
DX: E78.2 Mixed hyperlipidemia (principal); E66.9 Obesity, unspecified; Z68.31 Body mass index [BMI] 31.0-31.9, adult
CPT/HCPCS: 36415; 80053; 80061; 84443; 85025

== ENCOUNTER → 2021-02-02 07:57 | Outpatient (BNVA) | payer OTHER, SELFPAY | PROVIDERS: Visit Provider Orthopaedic Surgery ==

== ENCOUNTER 2021-05-09 09:14 | Emergency (ER) | payer OTHER, SELFPAY ==
[2021-05-09] VITALS (7 sets, daily range): BP systolic 179–213; BP diastolic 121–144; PULSE 65–81; RESP 14–20; TEMP 36.5–37.3; O2SAT 96–97; BMI 31.2
--- NOTE | 2021-05-09 10:17 | ED_ITS ---
HPI - General Adult General Chief complaint: General Medical Stated complaint: HBP Time Seen by Provider: 05/09/21 10:17 Source: patient Mode of arrival: ambulatory Limitations: no limitations History of Present Illness HPI narrative: Patient states that his blood pressure was high, he states he has been feeling weird with facial pain and blurred vision. His vision has been opaque. He doesn't know what his measured for his blood pressure at home. Onset (ago): week(s) Location: head and face Severity: mild Pain Consistency: intermittent Associated symptoms: denies other symptoms Related Data Previous Rx's Medication Instructions Recorded atorvastatin 40 mg tablet 40 mg PO BEDTIME 90 Days #90 tab 01/10/21 losartan 25 mg tablet 25 mg PO DAILY 90 Days #90 tab 02/15/21 labetalol 100 mg tablet 100 mg PO BID #20 tab 05/09/21 Allergies Allergy/AdvReac Type Severity Reaction Status Date / Time No Known Allergies Allergy Verified 02/02/21 08:22 Review of Systems Neurologic: Denies Sensory deficit (Neuro) [facility] Past Medical History Medical History Class 1 obesity with body mass index (BMI) of 31.0 to 31.9 in adult Former smoker Mixed hyperlipidemia Trigger finger Trigger finger of both hands Family History Family History Father Myocardial infarction Mother Diabetes mellitus Essential hypertension History of breast cancer Social History Social History Household Members: Family Household Members Other:: lives with and 2 children Housing: Apartment Do you presently have visiting nurse or other home services: No Alcohol intake: current Alcohol intake frequency: a few times a month Alcohol type: beer Patient Tobacco Use Status: Former Tobacco user Tobacco use type: Cigarette Cigarette Packs Per Day: 0.5 Cigarettes Per Day: 10 Years Smoked: 30 e-Cigarette/Vaping Use: Never Used Second Hand Smoke Exposure: No Advance Directives: No Advance Directives Information Provided: No service: No Current occupational status: employed 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 Physical Exam Vital Signs: Vital Signs: Last Vital Signs Temp 97.7 F 05/09/21 12:25 Pulse 66 05/09/21 14:08 Resp 18 05/09/21 14:08 BP 179/121 H 05/09/21 14:08 Pulse Ox 97 05/09/21 14:08 BMI result Body Mass Index 31.2 Const: General: healthy appearing Nutritional Appearance: average body habitus Orientation/consciousness: oriented to person and patient oriented x3 Limitations: no limitations HENMT: Head: Yes normal to inspection Ears: external ears normal General nose exam: Normal external nose present Mouth: Normal oral and palatal mucosa present and oropharynx normal Throat: Yes posterior oropharynx normal Eyes: Other: optic disks normal bilaterally General: appearance normal, both eyes and all related structures Neck: Other: supple Neck: Yes normal visual inspection Chest: Chest palpation & inspection: normal inspection of the chest Resp: Auscultation: clear to auscultation bilaterally Cardio: Jugular venous distension: no JVD Rate: regular rate Rhythm: regular rhythm Heart sounds: S1 normal heart sound present and S2 normal heart sound present GI: Inspection: Yes normal to inspection Palpation (GI): Soft to palpation, nontender and No hepatosplenomegaly present Auscultation: normal bowel sounds : General: Yes no CVA tenderness Back/Spine/Pelvis: Back: no CVA tenderness Skin: General skin exam: no rashes or lesions noted Neuro: General: oriented to person and patient oriented x3 Cranial nerves: Yes CN's II-XII intact bilaterally Motor exam (neuro): 5/5 motor strength present throughout Sensory Exam: No Sensory deficit (Neuro) Extrem: General: Yes normal to inspection Psych: Appearance: grossly normal Course Reevaluation(s) Reevaluation #1: blood pressure slowly coming down just wrote for another labetolol. Doubt cardiac ischemia as his ekg has not changed, patient with chronic troponin elevations. No other end organ damage will dc home when bp com es down and will add po labetolol to regimen Time: 14:16 Reevaluation #2: BP is down will dc home Time: 14:51 Medical Decision Making Lab Data Result diagrams: 05/09/21 10:53 05/09/21 10:53 Labs: Lab Results 05/09/21 05/09/21 05/09/21 Range/Units 10:53 10:53 13:35 WBC 7.1 (4.8-10.8) X10*3/uL RBC 4.67 (4.60-5.80) X10*6/uL Hgb 14.4 (14.0-18.0) g/dl Hct 40.8 L (42.0-52.0) % MCV 87.4 (80.0-98.0) fL MCH 30.8 (27.0-33.0) pg MCHC 35.3 (31.0-36.0) g/dl RDW 13.2 (11.0-16.0) % Plt Count 222 (160-400) X10*3/uL MPV 10.9 (9.4-12.4) fL Immature Gran % (Auto) 0.1 (0.0-0.4) % Neut % (Auto) 51.2 (45-73) % Lymph % (Auto) 34.3 (20-40) % [place] % (Auto) 11.0 (2-11) % Eos % (Auto) 2.7 (0-4) % Baso % (Auto) 0.7 (0-2) % Lymph # (Auto) 2.4 (1.2-4.9) X10*3/uL [place] # (Auto) 0.8 (0.1-1.2) X10*3/uL Eos # (Auto) 0.2 (0.0-0.4) X10*3/uL Baso # (Auto) 0.1 (0.0-0.2) X10*3/uL Abs Immat Gran (auto) 0.01 (0.00-0.03) X10*3/uL Absolute Neuts (auto) 3.6 (2.0-8.3) x10*3/uL Absolute Nucleated RBC 0.000 (0.0-0.012) X10*3/uL Nucleated RBC % (auto) 0.0 (0.0-0.2) /100WBC Sodium 140 (135-145) mmol/L Potassium 4.2 (3.3-5.1) mmol/L Chloride 109 H (96-108) mmol/L Carbon Dioxide 23 (22-29) mmol/L Anion Gap 12 (12-20) BUN 15 (9-16) mg/dL Creatinine 0.97 (0.5-1.4) mg/dL Estim Creat Clear Calc 118.2 Estimated GFR > 60 Random Glucose 100 (60-115) mg/dL Calcium 9.7 (8.4-10.2) mg/dL Troponin I High Sens 32.9 (<3.5-35.0) ng/L ECG Data Attestation: I personally reviewed and interpreted this ECG as follows: Interpretation: sinus rate 74, nonspecific twave changes I and AVL, V6. no change from July of 2020. Discharge Plan Discharge Clinical Impression: Hypertension Qualifiers: Hypertension type: primary hypertension Qualified Code(s): I10 - Essential (primary) hypertension Patient Disposition: Home, Self-Care Instructions: Hypertension (ED) Prescriptions: New labetalol 100 mg tablet 100 mg PO BID Qty: 20 RF: 0 No Action losartan 25 mg tablet 25 mg PO DAILY 90 Days Qty: 90 RF: 1 atorvastatin 40 mg tablet 40 mg PO BEDTIME 90 Days Qty: 90 RF: 2 Referrals: Lisa Casiano MD [Primary Care Provider] - 5 days
[2021-05-09] MEDS: Losartan Potassium 50 MG TABLET 100 MG PO (10:46)
[2021-05-09 10:56] LABS: MANUAL DIFF FLAG NO
[2021-05-09 10:57] LABS: Basophils Absolute Auto 0.1 X10*3/uL (0.0-0.2); Basophils Percent Auto 0.7 % (0-2); Eosinophils Absolute Auto 0.2 X10*3/uL (0.0-0.4); Eosinophils Percent Auto 2.7 % (0-4); Hematocrit 40.8 % (42.0-52.0); Hemoglobin 14.4 g/dl (14.0-18.0); Imm Gran Abs Auto 0.01 X10*3/uL (0.00-0.03); Imm Gran Pct Auto 0.1 % (0.0-0.4); Lymphocytes Absolute Auto 2.4 X10*3/uL (1.2-4.9); Lymphocytes Percent Auto 34.3 % (20-40); Mean Corpuscular HGB Conc 35.3 g/dl (31.0-36.0); Mean Corpuscular Hemoglobin 30.8 pg (27.0-33.0); Mean Corpuscular Volume 87.4 fL (80.0-98.0); Mean Platelet Volume 10.9 fL (9.4-12.4); Monocytes Absolute Auto 0.8 X10*3/uL (0.1-1.2); Neutrophils Absolute Auto 3.6 x10*3/uL (2.0-8.3); Neutrophils Percent Auto 51.2 % (45-73); Platelet Count 222 X10*3/uL (160-400); Red Blood Count 4.67 X10*6/uL (4.60-5.80); Red Cell Distribution Width 13.2 % (11.0-16.0); White Blood Count 7.1 X10*3/uL (4.8-10.8)
[2021-05-09 11:24] LABS: Anion Gap 12 (12-20); Blood Urea Nitrogen 15 mg/dL (9-16); Calcium 9.7 mg/dL (8.4-10.2); Carbon Dioxide 23 mmol/L (22-29); Chloride 109 mmol/L (96-108); Creatinine Clr Calc Pharmacy 118.2; Estimated Glomerular Filt Rate > 60; Glucose Random 100 mg/dL (60-115); Potassium 4.2 mmol/L (3.3-5.1); Sodium 140 mmol/L (135-145)
--- NOTE | 2021-05-09 12:27 | PC.NURSE ---
pt a&ox3, blood pressure high, other vital signs stable, attached to heart monitor, pt reports headache/pain, will continue to monitor
--- NOTE | 2021-05-09 12:40 | ECG_ITS ---
Test Reason : HYPERTENSION Blood Pressure : / mmHG Vent. Rate : 074 BPM Atrial Rate : 074 BPM P-R Int : 158 ms QRS Dur : 078 ms QT Int : 410 ms P-R-T Axes : 050 -03 -74 degrees QTc Int : 455 ms Normal sinus rhythm Nonspecific T wave abnormality Abnormal ECG When compared with ECG of 10-AUG-2020 09:21, Non-specific change in ST segment in Lateral leads Nonspecific T wave abnormality has replaced inverted T waves in Inferior leads T wave inversion no longer evident in Lateral leads Referred By: Romel Alba Electronically Signed By:DONNA BROWNE MD
--- NOTE | 2021-05-09 12:45 | PC.NURSE ---
reported high bp to provider
[2021-05-09] MEDS: Labetalol HCL 100 MG/20 ML VIAL 10 MG IVPUSH ×2 (13:00→15:22)
--- NOTE | 2021-05-09 13:55 | PC.NURSE ---
labs drawn, EKG performed, provider aware.
[2021-05-09 14:01] LABS: Troponin-I High Sensitivity 32.9 ng/L (<3.5-35.0)
--- NOTE | 2021-05-09 14:01 | PC.NURSE ---
provider made aware of high BP.
--- NOTE | 2021-05-09 15:23 | PC.NURSE ---
patient medicated with additional labetalol, pt bp 189/125 hr 65
--- NOTE | 2021-05-09 16:25 | PC.NURSE ---
patient a&ox3, pt continues to be hypertensive, provider was notified- no new orders given at this time, patient is discharging home.
== END 2021-05-09 16:39 | disposition home or self-care (01) ==
PROVIDERS: Emergency Provider Emergency Medicine; PCP Internal Medicine
DX: I10 Essential (primary) hypertension (principal); E78.5 Hyperlipidemia, unspecified; Z79.02 Long term (current) use of antithrombotics/antiplatelets; Z79.899 Other long term (current) drug therapy
CPT/HCPCS: 36415; 80048; 84484; 85025; 93005; 96374; 96376; 99284

== ENCOUNTER 2023-03-01 15:10 | Outpatient (AMB) | payer OTHER, SELFPAY ==
[2023-03-01 15:18] VITALS: BP 140/88; PULSE 68; O2SAT 97; BMI 29.0
--- NOTE | 2023-03-01 15:18 | MHC.PC.OV ---
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 Patient of Dr. Plummer. Medical history significant for hypertension, hyperlipidemia, insomnia, alcohol abuse-patient reports having 1 drink per week. He reports compliance with medications and denies side effects. He reports normal blood pressures at home. He reports that he currently has a cold. No shortness of breath or chest pain. 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 [facility] Medical History Alcohol abuse Insomnia Physical exam Trigger finger Trigger finger of both hands Class 1 obesity with body mass index (BMI) of 31.0 to 31.9 in adult Former smoker Mixed hyperlipidemia Surgical History No pertinent past surgical history Family History Father Myocardial infarction Mother Diabetes mellitus Essential hypertension History of breast cancer Social History Household Members: Family Household Members Other:: lives with and 2 children Housing: Apartment Do you presently have visiting nurse or other home services: No Alcohol intake: current Alcohol intake frequency: a few times a month Alcohol type: beer Patient Tobacco Use Status: Former Tobacco user Tobacco use type: Cigarette Cigarette Packs Per Day: 0.5 Cigarettes Per Day: 10 Years Smoked: 30 Packs Per Year: 15 Packs per year/per ci.00 e-Cigarette/Vaping Use: Never Used Second Hand Smoke Exposure: No service: No Current occupational status: employed 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 How often do you have a drink containing alcohol?: 2-4 times a month 2. How many drinks containing alcohol do you have on a typical day when you are drinking?: 10 or more 3. How often do you have six or more drinks on one occasion?: Monthly Total Score: 8 Score Reviewed/Action Taken: Yes GHASSAN-7 AMB Questionnaire GHASSAN-7 Date GHASSAN - 7 assessed: 05/29/22 Source: Developed by Drs. George Edwards, Renae Mendez, William Castanon and colleagues, with an educational bassam from [employer]. Review of Systems Const Denies body aches, Denies chills, Denies fever(s) and Denies headache(s) ENT Denies dizziness, Denies otalgia, Denies headache(s), Denies nasal discharge, Denies sinus pain and Denies sore throat Card Denies chest pain, Denies edema, Denies lightheadedness and Denies dyspnea Resp Denies cough, Denies dyspnea and Denies wheezing GI Denies abdominal pain Denies dysuria Musc Denies myalgias Skin/Breast Denies rash Neuro Denies dizziness and Denies headache(s) Aller/Immun Denies wheezing Physical exam (Primary Care) Vital Signs: Last Vital Signs Pulse 68 03/01/23 15:18 BP 140/88 H 03/01/23 15:18 Pulse Ox 97 03/01/23 15:18 Oxygen Delivery Method Room Air 03/01/23 15:18 BMI result Body Mass Index 29.0 Tobacco/Smoking Status: Tobacco use Status Tobacco use date assessed 03/01/23 03/01/23 15:19 Patient Tobacco Use Status Former Tobacco user 03/01/23 15:19 Tobacco use type Cigarette 03/01/23 15:19 e-Cigarette/Vaping Use Never Used 03/01/23 15:19 Thrive Assessment: Date of Thrive Assessment Date Thrive assessed 02/13/23 11/16/23 15:19 Const General: cooperative and no acute distress Orientation/consciousness: patient oriented x3 HENMT Head: Yes normocephalic and Yes atraumatic Face and sinus: Yes sinuses nontender Mouth: oropharynx normal and moist mucous membranes Throat: Yes posterior oropharynx normal Eyes General: appearance normal, both eyes and all related structures Neck Neck: Yes normal visual inspection and Yes full ROM Resp Effort & Inspection: normal respiratory effort and able to speak in complete sentences Auscultation: clear to auscultation bilaterally, no crackles, no rales, no rhonchi and no wheezes Cardio Rate: regular rate Rhythm: regular rhythm Heart sounds: S1 normal heart sound present and S2 normal heart sound present GI Auscultation: normal bowel sounds Skin General skin exam: no rashes or lesions noted Neuro General: patient oriented x3 Gait exam (Neuro): Normal gait present Extrem General: Yes full ROM and No edema Assessment and Plan Assessment & Plan (1) Insomnia: Code(s): G47.00 - Insomnia, unspecified Plan: Sleep hygiene Stable with trazodone at bedtime p.r.n. (2) Mixed hyperlipidemia: Code(s): E78.2 - Mixed hyperlipidemia Plan: Continue atorvastatin Low-cholesterol diet Patient was encouraged to complete his blood work (3) Essential hypertension: Code(s): I10 - Essential (primary) hypertension Plan: Goal BP equal or less than 140/90 Continue amlodipine, labetalol, losartan Low-sodium diet Plan Keep appointment with PCP as scheduled or follow-up sooner as needed Coding Level of Care Code Est Pt Level 4 (28696) Diagnoses Insomnia G47.00 Mixed hyperlipidemia E78.2 Essential hypertension I10
== END 2023-03-01 15:52 | disposition home or self-care (01) ==
PROVIDERS: PCP Internal Medicine; Visit Provider Nurse Practitioner Family
DX: G47.00 Insomnia, unspecified (principal); E78.2 Mixed hyperlipidemia; I10 Essential (primary) hypertension
CPT/HCPCS: 99214

== ENCOUNTER 2023-05-08 08:30 | Outpatient (REF) | payer OTHER, SELFPAY ==
[2023-05-08 10:53] LABS: Alanine Aminotransferase 37 U/L (0-40); Albumin Level 4.9 g/dL (3.5-5.0); Alkaline Phosphatase 67 U/L (39-117); Anion Gap 11 (12-20); Aspartate Amino Transferase 24 U/L (5-37); Bilirubin Total 0.7 mg/dL (0.0-1.0); Blood Urea Nitrogen 13 mg/dL (9-16); Calcium 9.8 mg/dL (8.4-10.2); Carbon Dioxide 27 mmol/L (22-29); Chloride 108 mmol/L (96-108); Cholesterol 138 mg/dL (<200); Estimated Glomerular Filt Rate > 60; Glucose Fasting 100 mg/dL (60-99); HDL Cholesterol 35 mg/dL (>40); LDL Cholesterol Calculated 76 mg/dL (<100); Sodium 142 mmol/L (135-145); Total Protein 7.8 g/dL (6.5-8.0); Triglycerides 135 mg/dL (<150)
== END 2023-05-08 08:31 | disposition home or self-care (01) ==
LOC: HO.LAB 08:30
PROVIDERS: PCP Internal Medicine; Visit Provider Internal Medicine
DX: G47.00 Insomnia, unspecified (principal); E78.5 Hyperlipidemia, unspecified
CPT/HCPCS: 36415; 80053; 80061

== ENCOUNTER 2024-12-16 14:45 | Outpatient (AMB) | payer OTHER, SELFPAY ==
--- NOTE | 2024-12-16 14:48 | MHC.PC.OV ---
Vital Signs 12/16/24 14:49 Height 6 ft 3 in Weight 207 lb 2 oz BMI 25.9 BP 140/86 H Blood Pressure Location Lt brachial Position Sitting Respiration 18 Pulse 63 Pulse Source Pulse Oximeter Temp 97.3 F Temp Source Temporal Artery Scan Pulse Oximetry (%) 99 Oxygen Delivery Method Room Air Intake Visit Reasons: meds f/u National Facilities Manager Required: No Accompanied by: Self / Same As Patient Allergies No Known Allergies Allergy (Verified 12/16/24 15:05) Medication List - Last Reconciled 12/16/24 by Lisa Ivan MD amlodipine 10 mg PO DAILY 90 days atorvastatin 40 mg PO BEDTIME 90 days labetalol 100 mg PO BID losartan 100 mg PO DAILY 90 days trazodone 50 mg PO BEDTIME PRN 90 days Tobacco use date assessed: 12/16/24 Dental Screening Dental Screen Date: 12/16/24 Did you have a dental visit in the last 12 months?: No Did you have a dental problem in the last 6 months where you did not have access to dental care?: No Was dental information given to patient?: No HPI HPI Comments History of Present Illness Details This is a 59-year-old male with hypertension and mixed hyperlipidemia that comes today for follow-up on his blood pressure which is borderline elevated. Blood pressure will be recheck in 3 weeks by nurse navigator. Lipid panel was order. He has never had a colonoscopy and will be referred for Cologuard which is his preference. [facility] Medical History Alcohol abuse Insomnia Physical exam Trigger finger Trigger finger of both hands Class 1 obesity with body mass index (BMI) of 31.0 to 31.9 in adult Former smoker Mixed hyperlipidemia Surgical History No pertinent past surgical history Family History Father Myocardial infarction Mother Diabetes mellitus Essential hypertension History of breast cancer Social History Household Members: Family Household Members Other:: lives with and 2 children Housing: Apartment Do you presently have visiting nurse or other home services: No Alcohol intake: current Alcohol intake frequency: a few times a month Alcohol type: beer Patient Tobacco Use Status: Former Tobacco user Tobacco use type: Cigarette Cigarette Packs Per Day: 0.5 Cigarettes Per Day: 10 Years Smoked: 30 e-Cigarette/Vaping Use: Never Used Second Hand Smoke Exposure: No service: No Current occupational status: employed 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 1. Little interest or pleasure in doing things: not at all 2. Feeling down, depressed, or hopeless: not at all 3. Trouble falling or staying asleep, or sleeping too much: not at all 4. Feeling tired or having little energy: not at all 5. Poor appetite or overeating: not at all 6. Feeling bad about yourself - or that you are a failure or have let yourself or your family down: not at all 7. Trouble concentrating on things, such as reading the newspaper or watching television: not at all 8. Moving or speaking so slowly that other people could have noticed. Or the opposite - being so fidgety or restless that you have been moving around a lot more than usual: not at all 9. Thoughts that you would be better off or of hurting yourself in some way: not at all Total score: 0 Depression Screening Interpretation: Negative Depression Screening Done: Yes 89577 - PHQ-9 Billing: Yes Source: Developed by Drs. George Edwards, Renae Mendez, William Castanon and colleagues, with an educational bassam from [employer]. Thrive Questionnaire Date Thrive assessed: 12/16/24 I am a: Patient What is your living situation today?: I have a steady place to live Within the past 12 months, did the food you bought not last and you didn't have the money to get more?: Never true Within the past 12 months, did you worry whether your food would run out before you got money to buy more?: Never true Do you have trouble paying for medicines?: No Do you have trouble getting transportation to medical appointments?: No Do you have trouble paying your heating and electricity bill?: No Do you have trouble taking care of your child, family member or friend?: No Do you have trouble with day-to-day activities such as bathing, preparing meals, shopping, managing finances, etc.?: No Are you currently unemployed and looking for a job?: No Are you interested in more education?: No Please select the resources that you would like help with: None Currently or been in a relationship where the following occur: No concerns reported THRIVE Score: 0 AUDIT C Alcohol Use Questionnaire (AUDIT-C) 1. How often do you have a drink containing alcohol?: 2-4 times a month 2. How many drinks containing alcohol do you have on a typical day when you are drinking?: 5 or 6 3. How often do you have six or more drinks on one occasion?: Monthly Total Score: 6 GHASSAN-7 AMB Questionnaire GHASSAN-7 Date GHASSAN - 7 assessed: 12/16/24 Feeling nervous, anxious, or on edge: 0 = Not at all Not being able to stop or control worryin = Not at all Worrying too much about different things: 0 = Not at all Trouble relaxin = Not at all Being so restless that it is hard to sit still: 0 = Not at all Becoming easily annoyed or irritable: 0 = Not at all Feeling afraid as if something awful might happen: 0 = Not at all Total GHASSAN-7 score (0-4 normal; 5-9 mild; 10-14 moderate; 15-21 severe): 0 Source: Developed by Drs. George Edwards, Renae Mendez, William Castanon and colleagues, with an educational bassam from [employer]. GHASSAN-7 Assessment Billing GHASSAN-7 Assessment Tool: GHASSAN-7 Assessment 18319 Review of Systems Const All systems reviewed & are unremarkable except as noted in HPI and below Card Denies chest pain at rest, Denies chest pain with activity, Denies edema, Denies irregular heart rhythm, Denies claudication, Denies dyspnea, Denies dyspnea on exertion, Denies orthopnea, Denies paroxysmal nocturnal dyspnea and Denies slow heart rate Resp Denies cough, Denies dyspnea and Denies dyspnea on exertion GI Denies abdominal pain, Denies change in bowel habits, Denies excessive flatus, Denies nausea and Denies vomiting Physical exam (Primary Care) Vital Signs: Last Vital Signs Temp 97.3 F 12/16/24 14:49 Pulse 63 12/16/24 14:49 Resp 18 12/16/24 14:49 BP 140/86 H 12/16/24 14:49 Pulse Ox 99 12/16/24 14:49 Oxygen Delivery Method Room Air 12/16/24 14:49 BMI result Body Mass Index 25.9 Tobacco/Smoking Status: Tobacco use Status Tobacco use date assessed 12/16/24 12/16/24 14:53 Patient Tobacco Use Status Former Tobacco user 12/16/24 14:53 Tobacco use type Cigarette 12/16/24 14:53 e-Cigarette/Vaping Use Never Used 12/16/24 14:53 PHQ-9: PHQ-9 Score PHQ-9: Total score 0 12/16/24 15:06 Depression Screening Interpretation: Negative Thrive Assessment: Date of Thrive Assessment Date Thrive assessed 12/16/24 12/16/24 14:53 Currently or been in a relationship where the following occur: No concerns reported Resp Effort & Inspection: normal respiratory effort Auscultation: clear to auscultation bilaterally Cardio Jugular venous distension: no JVD Rate: regular rate Rhythm: regular rhythm Heart sounds: S1 normal heart sound present and S2 normal heart sound present Extrem General: Yes full ROM Coding Level of Care Code Est Pt Level 3 (14480) Complex EM visit Add On G2211 Diagnoses Essential hypertension I10 Mixed hyperlipidemia E78.2 Additional Codes GHASSAN-7 Assessment Billing - GHASSAN-7 Assessment Tool: GHASSAN-7 Assessment 12206 ([id number]) PHQ-9 - 86457 - PHQ-9 Billing: Yes ([id number]) Time Spent (min) 19 Assessment & Plan Assessment & Plan (1) Essential hypertension: Code(s): I10 - Essential (primary) hypertension Category: Medical (2) Mixed hyperlipidemia: Code(s): E78.2 - Mixed hyperlipidemia Category: Medical Plan Continue current meds. Recheck blood pressure in 3 weeks by nurse navigator. Blood pressure goal is equal or less than 130/80. Repeat lipid panel. Orders: Orders Comprehensive [facility]. Panel Fast Today I10 - Essential (primary) hypertension Lipid Panel Today E78.5 - Hyperlipidemia, unspecified Referrals Cologuard Test Z12.11 - Encounter for screening for malignant neoplasm of colon, Z12.12 - Encounter for screening for malignant neoplasm of rectum
[2024-12-16 14:49] VITALS: BP 140/86; PULSE 63; RESP 18; TEMP 36.3; O2SAT 99; BMI 25.9
== END 2024-12-16 15:16 | disposition home or self-care (01) ==
LOC: HO.HMCH 14:46
PROVIDERS: PCP Internal Medicine; Visit Provider Internal Medicine
DX: I10 Essential (primary) hypertension (principal); E78.2 Mixed hyperlipidemia

== ENCOUNTER → 2024-12-16 14:45 | Outpatient (BNVA) | payer OTHER, SELFPAY | PROVIDERS: PCP Internal Medicine; Visit Provider Internal Medicine | DX: I10 Essential (primary) hypertension (principal); E78.2 Mixed hyperlipidemia | CPT/HCPCS: 96127 ==

== ENCOUNTER 2024-12-23 06:05 | Outpatient (REF) | payer OTHER, SELFPAY ==
[2024-12-23 08:26] LABS: Alanine Aminotransferase 40 U/L (0-40); Albumin Level 4.8 g/dL (3.5-5.0); Alkaline Phosphatase 59 U/L (39-117); Anion Gap 13 (12-20); Aspartate Amino Transferase 24 U/L (5-37); Blood Urea Nitrogen 14 mg/dL (9-16); Calcium 9.0 mg/dL (8.4-10.2); Carbon Dioxide 27 mmol/L (22-29); Chloride 108 mmol/L (96-108); Cholesterol 112 mg/dL (<200); Estimated Glomerular Filt Rate > 60; HDL Cholesterol 34 mg/dL (>40); Potassium 3.7 mmol/L (3.3-5.1); Sodium 144 mmol/L (135-145); Total Protein 7.1 g/dL (6.5-8.0); Triglycerides 117 mg/dL (<150)
== END 2024-12-23 06:06 | disposition home or self-care (01) ==
LOC: HO.LAB 06:05
PROVIDERS: PCP Internal Medicine; Visit Provider Internal Medicine
DX: I10 Essential (primary) hypertension (principal); E78.5 Hyperlipidemia, unspecified
CPT/HCPCS: 36415; 80053; 80061